=== PATIENT | male | born 1950 | race Asian ===

== ENCOUNTER 2016-03-11 07:34 | Day surgery (SDC) | payer OTHER, MEDICAID ==
[2016-03-11] MEDS ORDERED: MIDAZOLAM 2 MG/2 ML VIAL ONE (08:21)
[2016-03-11] MEDS ORDERED: fentaNYL 100 MCG/2 ML INJ ONE (08:22)
[2016-03-11] MEDS ORDERED: NS 1,000 ML IV SCH (08:30)
--- NOTE | 2016-03-11 09:37 | GPN ---
[f rep st] PROCEDURE NOTE PROCEDURE: Colonoscopy. INDICATION: Surveillance of colorectal polyps. MEDICATIONS USED: 5 mg of Versed, 100 mcg of fentanyl. COMPLICATIONS: None acutely. DESCRIPTION OF PROCEDURE: After informed consent was obtained, the patient was placed in the left la teral decubitus position and the forward viewing colonoscope was advanced through the rectum into the cecum. The cecum was identified by the ileocecal valve and the appendiceal orifice. The scope was then gradually withdrawn through the segments of the colon. The quality of the colonoscopy prep was excellent. Retroflex views in the rectum were obtained. FINDINGS: 1. No polyps were discovered. 2. Small internal hemorrhoids were discovered. IMPRESSION AND RECOMMENDATIONS: Mr. Myrick's colonoscopy today was normal. Given his prior history of c olon polyps, I recommend he have a surveillance colonoscopy done in 5 years. If he has symptoms of h emorrhoid disease, hemorrhoid therapies could be considered. Conscious sedation was started at 8:35 and ended at 9:03. Conscious sedation time therefore was 28 m inutes. /[id number]/MODL
== END 2016-03-11 10:00 | disposition home or self-care (01) ==
LOC: FSGY 07:34
PROVIDERS: ATTEND Internal Medicine Gastroenterology
PROC: 0DJD8ZZ Inspection of Lower Intestinal Tract, Via Natural or Artificial Opening Endoscopic (ICD-10-PCS; principal; 2016-03-11 08:30)
DX: Z12.11 Encounter for screening for malignant neoplasm of colon (principal); K64.8 Other hemorrhoids; Z86.010 Personal history of colon polyps; Z72.0 Tobacco use
CPT/HCPCS: J2250; J3010